=== PATIENT | female | born 1960 | race Two or more races ===

== ENCOUNTER 2018-09-04 15:18 | Emergency (ER) | payer MEDICARE, OTHER ==
[~2018-09-04] VITALS: Ht 162.6 cm; Wt 95.5 kg
[2018-09-04 15:40] VITALS: BP 114/91
[2018-09-04] MEDS ORDERED: OXYC10 PO (15:42)
[2018-09-04] MEDS ORDERED: [UNRECOGNIZED DRUG - REMARK] PO (15:42)
== END 2018-09-04 16:45 | disposition home or self-care (01) ==
LOC: EMS 15:18
DX: R53.83 Other fatigue (principal); E78.00 Pure hypercholesterolemia, unspecified; F32.9 Major depressive disorder, single episode, unspecified
CPT/HCPCS: 93005